=== PATIENT | male | born 1980 | race Caucasian/White ===

== ENCOUNTER 2019-10-19 04:25 | Inpatient (IN) | payer MEDICAID ==
[~2019-10-19] VITALS: Ht 165.1 cm; Wt 81.0 kg
[2019-10-19] MEDS ORDERED: SODIUM CHLORIDE 0.9% 1,000 ML IV ONE ×3 (08:38→12:15)
[2019-10-19] MEDS ORDERED: LORAZEPAM 2MG/ML CPJ IV STA (08:38)
[2019-10-19 09:13] LABS: BASOPHILS % 0.7 % (0.0-2.0); EOSINOPHILS % 0.2 % (0.0-5.0); HEMATOCRIT. 47.8 % (42.0-52.0); HEMOGLOBIN. 16.4 g/dL (14.0-18.0); LYMPHOCYTES % 11.8 % (20.0-50.0); MEAN CORPUSCULAR HEMOGLOBIN 27.9 pg (28.0-32.0); MEAN CORPUSCULAR VOLUME 81.5 fL (80.0-94.0); MEAN PLATELET VOLUME 7.5 fl (7.4-10.4); MONOCYTES % 5.7 % (2.0-8.0); NEUTROPHILS % 81.6 % (40.0-76.0); PLATELET 245 x1000/uL (130-400); RED BLOOD CELL COUNT 5.87 mill/uL (4.7-6.1); RED CELL DISTRIBUTION WIDTH 13.8 % (11.6-14.6)
[2019-10-19 09:18] LABS: CHLORIDE 100 mEq/L (98-107)
[2019-10-19 09:19] LABS: PROTHROMBIN TIME 10.7 sec (9.6-11.0)
[2019-10-19 09:22] LABS: ETHANOL BLOOD 37 mg/dL
[2019-10-19 09:47] LABS: CREATINE KINASE 4932 IU/L (39-308)
[2019-10-19] MEDS ORDERED: SODIUM CHLORIDE 0.9% 1,000 ML IV NR (13:00)
[2019-10-19] MEDS ORDERED: LORAZEPAM 2MG/ML CPJ IV NR (13:15)
[2019-10-19 14:15] LABS: CREATINE KINASE 4961 IU/L (39-308)
[2019-10-19] MEDS ORDERED: ACETAMINOPHEN 325MG TABLET PO PRN (17:15)
[2019-10-19] MEDS ORDERED: LORAZEPAM 2MG/ML CPJ IV PRN (17:15)
[2019-10-19] MEDS ORDERED: POTASSIUM CHLORIDE 20MEQ TABLET SR PO NR (17:15)
[2019-10-19] MEDS ORDERED: CLONIDINE 0.1MG TABLET PO PRN (17:15)
[2019-10-19] MEDS ORDERED: KCL 10MEQ/50ML PREMIX 50 ML IV NR (17:15)
[2019-10-19] MEDS ORDERED: ONDANSETRON HCL 4MG/2ML INJ IV PRN (17:15)
[2019-10-19] MEDS ORDERED: MVI, ADULT NO.1 10 ML, FOLIC ACID 1 MG, THIAMINE HCL 100 MG in SODIUM CHLORIDE 0.9% 1,0... IV NR ×4 (18:00)
[2019-10-19] MEDS ORDERED: CHLORDIAZEPOXIDE 5 MG CAPSULE PO NR (19:45)
[2019-10-19 21:55] VITALS: BP 110/60
[2019-10-19] MEDS: SODIUM CHLORIDE 0.9% 1,000 ML IV SCH (23:31)
[2019-10-20] VITALS: BP 104/77
[2019-10-20 00:21] LABS: CREATINE KINASE 3485 IU/L (39-308)
[2019-10-20 00:29] VITALS: BP 110/60
[2019-10-20 02:10] LABS: *AMPHETAMINES SCREEN URINE PRESUMTIVE POSITIVE (NEGATIVE); *BARBITURATES SCREEN URINE NEGATIVE (NEGATIVE); *BENZODIAZEPINES SCREEN URINE NEGATIVE (NEGATIVE); *COCAINE SCREEN URINE NEGATIVE (NEGATIVE)
[2019-10-20 02:11] LABS: CANNABINOID URINE SCREEN NEGATIVE (NEGATIVE); METHADONE URINE SCREEN NEGATIVE (NEGATIVE); OPIATES URINE SCREEN NEGATIVE (NEGATIVE); PHENCYCLIDINE URINE SCREEN NEGATIVE (NEGATIVE)
[2019-10-20 04:00] VITALS: BP 111/76
[2019-10-20] MEDS: CHLORDIAZEPOXIDE 5 MG CAPSULE PO SCH ×2 (05:23→13:37)
[2019-10-20 06:36] LABS: EOSINOPHILS % 1.9 % (0.0-5.0); HEMATOCRIT. 40.8 % (42.0-52.0); HEMOGLOBIN. 14.2 g/dL (14.0-18.0); LYMPHOCYTES % 19.6 % (20.0-50.0); MEAN CORPUSCULAR HEMOGLOBIN 28.3 pg (28.0-32.0); MEAN CORPUSCULAR VOLUME 81.7 fL (80.0-94.0); MEAN PLATELET VOLUME 7.7 fl (7.4-10.4); MONOCYTES % 7.9 % (2.0-8.0); NEUTROPHILS % 69.6 % (40.0-76.0); PLATELET 183 x1000/uL (130-400); RED CELL DISTRIBUTION WIDTH 13.5 % (11.6-14.6)
[2019-10-20 06:48] LABS: CHLORIDE 110 mEq/L (98-107)
[2019-10-20 07:10] LABS: CREATINE KINASE 2195 IU/L (39-308)
[2019-10-20 08:00] VITALS: BP 124/70
[2019-10-20] MEDS ORDERED: MULTIVITAMINS,THER W-MINERALS TABLET PO SCH (09:00)
[2019-10-20] MEDS ORDERED: THIAMINE HCL 100MG TABLET PO SCH (09:00)
[2019-10-20] MEDS ORDERED: FOLIC ACID 1MG TABLET PO SCH (09:00)
[2019-10-20] MEDS ORDERED: HEPARIN 5000 UNITS/ML VIAL SUBCUT SCH (09:00)
[2019-10-20] MEDS ORDERED: POTASSIUM CHLORIDE 20MEQ TABLET SR PO SCH (09:45)
[2019-10-20] MEDS ORDERED: MAGNESIUM 2 G PREMIX 50 ML IV SCH (11:00)
[2019-10-20] MEDS: SODIUM CHLORIDE 0.9% 1,000 ML IV SCH (11:02)
[2019-10-20 12:00] VITALS: BP 131/77
[2019-10-20] MEDS ORDERED: FOLI-43 PO (14:25)
[2019-10-20] MEDS ORDERED: CHLO5CAP3 PO (14:25)
[2019-10-20] MEDS ORDERED: THIA100T72 PO (14:25)
[2019-10-20 14:37] VITALS: BP 131/77
== END 2019-10-20 16:38 | disposition home or self-care (01) | DRG 280 ==
LOC: ER 04:25 → 5WST 16:21 → EDBEDREQTM 16:42 → EDBEDREQ 16:42 → ENRESERV 21:06
PROVIDERS: ADMIT Family Medicine Adult Medicine; ATTEND Family Medicine Adult Medicine
DX: K70.10 Alcoholic hepatitis without ascites (principal); M62.82 Rhabdomyolysis; E83.42 Hypomagnesemia; E87.6 Hypokalemia; F15.10 Other stimulant abuse, uncomplicated; F17.200 Nicotine dependence, unspecified, uncomplicated; F41.9 Anxiety disorder, unspecified; Y90.1 Blood alcohol level of 20-39 mg/100 ml; Z83.3 Family history of diabetes mellitus; F10.239 Alcohol dependence with withdrawal, unspecified
CPT/HCPCS: 36415; 80053; 80305; 80307; 80320; 80329; 82550; 83735; 83880; 84443; 84484; 85025; 93005; 96361; 96365; 96366; 96367; 96375; 97161; 99285; J1644; J2060; J3411; J3475; J3480; J3490; J7030; G0480